=== PATIENT | female | born 1970 | race Caucasian/White ===

== ENCOUNTER 2020-07-05 19:17 | Emergency (ER) | payer MEDICARE ==
[2020-07-05] MEDS ORDERED: BABY ASPIRIN 81 MG CHEW PO ONE (19:19)
--- NOTE | 2020-07-05 19:19 | ERPHSYRPT ---
- History of Present Illness Time Seen by Provider: 07/05/20 19:19 Historian: patient Exam Limitations: no limitations Physician History: This is a 50-year-old white female who has a significant cardiac history. She does have a pacemaker defibrillator that was placed over a year ago in [facility][1] by Dr. Cochran. In addition, she was underwent a open heart procedure which she says was for an enlarged left heart. She states that she has not had any coronary artery bypass grafts or stents placed. Her cardiothoracic surgeon was with Dr. Castaneda at [facility][1]. Again this was done over a year ago. She has not seen either of her heart doctors since she moved to this area. Patient describes sudden onset approximately 1 and half hours ago of substernal chest pain that radiates to her left shoulder and upper arm. She is not short of breath she has no abdominal pain she has no nausea vomiting or diarrhea. She has no cough. She did not take any aspirin or nitroglycerin. Patient is diabetic and has a history of hypertension and TIAs. Timing/Duration: today, hour(s) (1.5) Activities at Onset: rest Quality: pressure, other (She states she is feels like someone is pulling it out) Location: substernal Chest Pain Radiation: arm Severity of Pain-Max: moderate Severity of Pain-Current: moderate Modifying Factors: Improves With: nothing Associated Symptoms: No nausea, No vomiting, No shortness of breath, No diaphoresis, No fever, No headache Prior Chest Pain/Cardiac Workup: cardiac cath, echocardiography Nitro Today/Relief: no nitro taken today Aspirin Treatment Today: no aspirin today Allergies/Adverse Reactions: Penicillins Allergy (Verified 07/05/20 19:19) Home Medications: Buspirone HCl [Buspar] 1 tab PO TID 07/05/20 [History] Escitalopram Oxalate [Lexapro] 1 tab PO DAILY 07/05/20 [History] Fluticasone Propion/Salmeterol [Wixela 500-50 Inhub] 1 puff BID 07/05/20 [History] Glipizide [Glipizide ER] 1 tab PO DAILY 07/05/20 [History] Metoprolol Tartrate 25 mg [Lopressor 25MG Tab] 1 tab PO BID 07/05/20 [History] Topiramate 1 tab PO DAILY 07/05/20 [History] Verapamil HCl [Verapamil ER] 1 tab PO DAILY 07/05/20 [History] Travel Risk - International Travel Have you traveled outside of the country in past 3 weeks: No - Coronavirus Screening Are you exhibiting any of the following symptoms?: No Close contact with a COVID-19 positive Pt in past 14-21 Days: No - Review of Systems Constitutional: No Symptoms Eyes: No Symptoms Ears, Nose, & Throat: No Symptoms Respiratory: No Symptoms Cardiac: Chest Pain Abdominal/Gastrointestinal: No Symptoms Genitourinary Symptoms: No Symptoms Musculoskeletal: No Symptoms Skin: No Symptoms Neurological: No Symptoms Psychological: No Symptoms Endocrine: No Symptoms Hematologic/Lymphatic: No Symptoms Immunological/Allergic: No Symptoms All Other Systems: Reviewed and Negative - Past Medical History Pertinent Past Medical History: Yes Neurological History: No Pertinent History ENT History: No Pertinent History Cardiac History: Arrhythmia, Hypertension, Other (Thickened heart chamber) Respiratory History: No Pertinent History Endocrine Medical History: Diabetes Type II Musculoskeletal History: No Pertinent History GI Medical History: No Pertinent History History: No Pertinent History Psycho-Social History: No Pertinent History Female Reproductive Disorders: No Pertinent History - Past Surgical History Past Surgical History: Yes Cardiac: Pacemaker, Other (Cardiac surgery of unknown type) Respiratory: No Pertinent History Gastrointestinal: No Pertinent History Genitourinary: No Pertinent History Musculoskeletal: No Pertinent History Female Surgical History: No Pertinent History - Nursing Vital Signs Nursing Vital Signs: Initial Vital Signs Pulse Rate 60 07/05/20 19:18 Respiratory Rate 16 07/05/20 19:18 Blood Pressure 136/84 07/05/20 19:18 O2 Sat by Pulse Oximetry 97 07/05/20 19:18 Pain Scale Pain Intensity 3 - Physical Exam General Appearance: no apparent distress, alert, anxiety Eye Exam: PERRL/EOMI, eyes nml inspection Ears, Nose, Throat Exam: normal ENT inspection, moist mucous membranes Neck Exam: normal inspection, non-tender, supple, full range of motion Respiratory Exam: normal breath sounds, chest tenderness, lungs clear, airway intact, No respiratory distress Cardiovascular Exam: regular rate/rhythm, normal heart sounds, normal peripheral pulses Gastrointestinal/Abdomen Exam: soft, normal bowel sounds, No tenderness Pelvic Exam: not done Rectal Exam: not done Back Exam: normal inspection, normal range of motion, No CVA tenderness, No vertebral tenderness Extremity Exam: normal inspection, normal range of motion, pelvis stable Neurologic Exam: alert, oriented x 3, cooperative, trauma program manager II-XII nml as tested, normal mood/affect, nml cerebellar function, nml station & gait, sensation nml Skin Exam: normal color, warm, dry Lymphatic Exam: No adenopathy SpO2 Interpretation: normal O2 Delivery: Room Air - Course Nursing assessment & vital signs reviewed: Yes EKG Interpreted by Me: RATE (63), NORMAL AXIS, NORMAL QRS, NORMAL ST-T, Other (No acute ischemic changes. There is a borderline prolonged NE interval and left ventricular hypertrophy present. There is atrial paced complexes present.) Ordered Tests: Active Orders 24 hr Category Date Time Status Cloth Desizing Range Tender STAT Care 07/05/20 19:26 Active EKG-ER Only STAT Care 07/05/20 19:19 Active IV Insertion STAT Care 07/05/20 19:19 Active Pulse Oximetry (ED) STAT Care 07/05/20 19:19 Active CHEST 1 VIEW (PORTABLE) Stat Exams 07/05/20 19:19 Completed CHEST WITH CONTRAST [CT] Stat Exams 07/05/20 21:59 Taken BMP Stat Lab 07/05/20 21:43 Completed CBC W DIFF Stat Lab 07/05/20 19:30 Completed CMP Stat Lab 07/05/20 19:30 Completed D-DIMER QUANTITATIVE Stat Lab 07/05/20 19:30 Completed NT PRO BNP Stat Lab 07/05/20 19:30 Completed PROTIME WITH INR Stat Lab 07/05/20 19:30 Completed TROPONIN Q3H Lab 07/05/20 19:30 Completed TROPONIN Q3H Lab 07/05/20 21:43 Completed TROPONIN Q3H Lab 07/06/20 01:30 Ordered TROPONIN Q3H Lab 07/06/20 04:30 Ordered TROPONIN Q3H Lab 07/06/20 07:30 Ordered Medication Summary Generic Name Dose Route Start Last Admin Trade Name Freq PRN Reason Stop Dose Admin Sodium Chloride 1,000 mls @ 250 mls/hr 07/05/20 20:30 07/05/20 20:31 Sodium Chloride 0.9% 1000 Ml IV 08/04/20 20:29 250 mls/hr .Q4H АННА Administration Discontinued Medications Generic Name Dose Route Start Last Admin Trade Name Freq PRN Reason Stop Dose Admin Aspirin 324 mg 07/05/20 19:19 07/05/20 19:24 Baby Aspirin 81 Mg Chew PO 07/05/20 19:20 324 mg STAT ONE Administration Sodium Chloride 500 mls @ 500 mls/hr 07/05/20 20:02 07/05/20 21:07 Sodium Chloride 0.9% 500 Ml IV 07/05/20 21:01 Infused .Q1H ONE Infusion Sodium Chloride Confirm 07/05/20 20:04 Sodium Chloride 0.9% 500 Ml Administered 07/05/20 20:05 Dose 500 mls @ ud IV .STK-MED ONE Morphine Sulfate 2 mg 07/05/20 20:02 07/05/20 20:07 Morphine Sulfate 2 Mg Inj IV 07/05/20 20:03 2 mg STAT ONE Administration Morphine Sulfate Confirm 07/05/20 20:04 Morphine Sulfate 2 Mg Inj Administered 07/05/20 20:05 Dose 2 mg .ROUTE .STK-MED ONE Ondansetron HCl 4 mg 07/05/20 20:02 07/05/20 20:06 Zofran 4 Mg/2 Ml Vial IV 07/05/20 20:03 4 mg STAT ONE Administration Ondansetron HCl Confirm 07/05/20 20:04 Zofran 4 Mg/2 Ml Vial Administered 07/05/20 20:05 Dose 4 mg .ROUTE .STK-MED ONE Lab/Rad Data: Laboratory Result Diagrams 07/05/20 19:30 07/05/20 21:43 Laboratory Results 07/05/20 07/05/20 07/05/20 Range/Units 21:43 21:43 19:30 WBC (4.0-10.5) K/mm3 RBC (4.1-5.4) M/mm3 Hgb (12.0-16.0) gm/dl Hct (35-47) % MCV (78-100) fl MCH (26-32) pg MCHC (32-36) g/dl RDW (11.5-14.0) % Plt Count (150-450) K/mm3 MPV (7.5-11.0) fl Gran % (36.0-66.0) % Eos # (Auto) (0-0.5) Absolute Lymphs (auto) (1.0-4.6) Absolute Monos (auto) (0.0-1.3) Lymphocytes % (24.0-44.0) % Monocytes % (0.0-12.0) % Eosinophils % (0.00-5.0) % Basophils % (0.0-0.4) % Absolute Granulocytes (1.4-6.9) Basophils # (0-0.4) PT (9.95-12.35) SECONDS INR (0.8-3.0) D-Dimer (215-500) ng/mL Sodium 138 (137-145) mmol/L Potassium 4.1 (3.5-5.1) mmol/L Chloride 110 H (98-107) mmol/L Carbon Dioxide 24 (22-30) mmol/L Anion Gap 7.7 (5-15) MEQ/L BUN 24 H (7-17) mg/dL Creatinine 1.20 H (0.52-1.04) mg/dL Estimated GFR 50.5 ML/MIN Glucose 82 (74-106) mg/dL Calcium 8.3 L (8.4-10.2) mg/dL Total Bilirubin (0.2-1.3) mg/dL AST (14-36) U/L ALT (0-35) U/L Alkaline Phosphatase (38-126) U/L Troponin I < 0.012 < 0.012 (0.000-0.034) ng/mL NT-Pro-B Natriuret Pep (0-900) pg/mL Serum Total Protein (6.3-8.2) g/dL Albumin (3.5-5.0) g/dL 07/05/20 07/05/20 07/05/20 Range/Units 19:30 19:30 19:30 WBC 6.8 (4.0-10.5) K/mm3 RBC 3.74 L (4.1-5.4) M/mm3 Hgb 11.0 L (12.0-16.0) gm/dl Hct 34.8 L (35-47) % MCV 93.0 (78-100) fl MCH 29.4 (26-32) pg MCHC 31.6 L (32-36) g/dl RDW 13.2 (11.5-14.0) % Plt Count 298 (150-450) K/mm3 MPV 9.6 (7.5-11.0) fl Gran % 48.3 (36.0-66.0) % Eos # (Auto) 0.18 (0-0.5) Absolute Lymphs (auto) 2.69 (1.0-4.6) Absolute Monos (auto) 0.62 (0.0-1.3) Lymphocytes % 39.4 (24.0-44.0) % Monocytes % 9.1 (0.0-12.0) % Eosinophils % 2.6 (0.00-5.0) % Basophils % 0.6 (0.0-0.4) % Absolute Granulocytes 3.29 (1.4-6.9) Basophils # 0.04 (0-0.4) PT 11.6 (9.95-12.35) SECONDS INR 1.03 (0.8-3.0) D-Dimer 765 H* (215-500) ng/mL Sodium 138 (137-145) mmol/L Potassium 4.0 (3.5-5.1) mmol/L Chloride 108 H (98-107) mmol/L Carbon Dioxide 23 (22-30) mmol/L Anion Gap 10.4 (5-15) MEQ/L BUN 23 H (7-17) mg/dL Creatinine 1.29 H (0.52-1.04) mg/dL Estimated GFR 46.5 ML/MIN Glucose 94 (74-106) mg/dL Calcium 9.1 (8.4-10.2) mg/dL Total Bilirubin 0.30 (0.2-1.3) mg/dL AST 22 (14-36) U/L ALT 19 (0-35) U/L Alkaline Phosphatase 56 (38-126) U/L Troponin I (0.000-0.034) ng/mL NT-Pro-B Natriuret Pep 281 (0-900) pg/mL Serum Total Protein 6.9 (6.3-8.2) g/dL Albumin 4.0 (3.5-5.0) g/dL - Progress Progress: re-examined Air Movement: good Progress Note: 07/05/20 20:04 Chest x-ray shows no acute cardiopulmonary process 07/05/20 23:17 CT of the chest with contrast reveals no evidence of pulmonary embolus. There is no evidence of acute pulmonary pathology present. 07/05/20 23:17 Medical decision making: This patient had sudden onset of substernal chest pain with radiation to the left shoulder and upper arm. She has been given aspirin, nitroglycerin and morphine. Her vital signs are stable. Her chest x-ray is free from any acute cardiopulmonary process. Her CT scan of the chest with contrast showed no pulmonary embolus and no evidence of acute pulmonary pathology. Patient was reexamined. She continues to have chest pain at the level of approximately 3-4 out of 10. We will contact the patient's muck boss at [facility][1] for further recommendations. 07/06/20 00:[address] Lei ([phone]) who is the muck boss covering for Dr. Cochran at [facility][1]. I reviewed the patient history, condition, EKG findings, chest x-ray findings, CAT scan of the chest with contr ast findings and laboratory results. He reviewed the patient's chart. She has a history of hypertrophic cardiomyopathy. She underwent an open heart surgery to have a myotomy performed. He stated there is no evidence that she has any coronary artery disease or evidence of ischemia. He recommends intravenous fluids followed by discharge to home and follow-up with Dr. Cochran by phone on Wednesday to make arrangements for follow-up appointment. We have given the patient approximately 1600 mL of intravenous fluid. Patient has two normal troponins, normal chest x-ray, no acute findings on a CTA of chest with contrast, a nonacute EKG and a cardiology consultation. Patient be discharged to home. Blood Culture(s) Obtained: No Antibiotics given: No Counseled pt/family regarding: lab results, diagnosis, need for follow-up, rad results - Departure Departure Disposition: Home Clinical Impression: Chest pain Condition: Stable Critical Care Time: No Referrals: DOCTOR,NO FAMILY [Primary Care Provider] - Additional Instructions: Take your medication as prescribed. Call your muck boss Wednesday, July 08, 2020, Dr. Cochran, to make arrangements for a follow-up appointment. Return to the emergency department if your symptoms worsen. Use the list we provided you to make an appointment to see a local primary care provider.
[2020-07-05 19:35] LABS: Absolute Neutrophil Ct (ANC) 3.29 (1.4-6.9); BASOPHIL % 0.6 % (0.0-0.4); Basophil (Absolute #) 0.04 (0-0.4); Eosinophil % 2.6 % (0.00-5.0); Eosinophil (Absolute #) 0.18 (0-0.5); Hematocrit 34.8 % (35-47); Lymphocyte (Absolute #) 2.69 (1.0-4.6); Lymphocytes % 39.4 % (24.0-44.0); Mean Corpuscular Hemoglobin 29.4 pg (26-32); Mean Corpuscular Hgb Concent. 31.6 g/dl (32-36); Mean Platelet Volume 9.6 fl (7.5-11.0); Monocyte (Absolute #) 0.62 (0.0-1.3); Monocytes % 9.1 % (0.0-12.0); Neutrophil % 48.3 % (36.0-66.0); Platelet Count 298 K/mm3 (150-450); Red Blood Count 3.74 M/mm3 (4.1-5.4); Red Cell Distribution Width 13.2 % (11.5-14.0); White Blood Count 6.8 K/mm3 (4.0-10.5)
[2020-07-05 19:44] LABS: INR 1.03 (0.8-3.0); PROTIME 11.6 SECONDS (9.95-12.35)
[2020-07-05 19:57] LABS: ANION GAP 10.4 MEQ/L (5-15); BILIRUBIN,TOTAL 0.3 mg/dL (0.2-1.3); Calcium 9.1 mg/dL (8.4-10.2); Creatinine 1 1.29 mg/dL (0.52-1.04); EST GLOMERULAR FILTRATION RATE 46.5 ML/MIN; Total Protein 6.9 g/dL (6.3-8.2)
[2020-07-05] MEDS ORDERED: MORPHINE SULFATE 2 MG INJ IV ONE (20:02)
[2020-07-05] MEDS ORDERED: Sodium Chloride 0.9% 500 ML 500 ML IV ONE ×2 (20:02→20:04)
[2020-07-05] MEDS ORDERED: Zofran 4 MG/2 ML VIAL IV ONE (20:02)
[2020-07-05] MEDS ORDERED: MORPHINE SULFATE 2 MG INJ ONE (20:04)
[2020-07-05] MEDS ORDERED: Zofran 4 MG/2 ML VIAL ONE (20:04)
[2020-07-05] MEDS ORDERED: Sodium Chloride 0.9% 1000 ML 1,000 ML ONE (20:30)
[2020-07-05] MEDS ORDERED: Sodium Chloride 0.9% 1000 ML 1,000 ML IV SCH (20:30)
--- NOTE | 2020-07-05 21:40 | XRAY ---
Indication: Chest pain. Comparison: None Portable chest is clear. Heart is not enlarged and demonstrates left-sided AICD. Bony thorax intact with sternotomy wires. Impression: Nonacute chest with chronic features.
[2020-07-05 21:58] LABS: ANION GAP 7.7 MEQ/L (5-15); Calcium 8.3 mg/dL (8.4-10.2); Creatinine 1 1.2 mg/dL (0.52-1.04); EST GLOMERULAR FILTRATION RATE 50.5 ML/MIN; Potassium 4.1 mmol/L (3.5-5.1)
[2020-07-06 00:44] VITALS: BP 144/66; PULSE 60; O2SAT 98
--- NOTE | 2020-07-06 06:05 | XRAY ---
Indication: Chest pain and short of breath. Elevated d-dimer. Multiple contiguous axial images obtained through the chest using 80 cc Isovue 370 contrast and PE protocol. Comparison: None There is good opacification of the pulmonary arteries to include the lobar and segmental branches. No pulmonary embolus. Heart is borderline enlarged with left-sided AICD. Aorta is normal in course and caliber. Small hiatal hernia. Lungs demonstrates minimal bilateral dependent atelectasis. No suspicious pulmonary mass, infiltrate, or effusion. Bony thorax intact with mild degenerative changes throughout the spine and sternotomy wires. Limited upper abdomen demonstrates cholecystectomy clips. Impression: Negative pulmonary embolus. No acute cardiopulmonary abnormalities. Incidental small hiatal hernia. Comment: Preliminary interpretation was made by [facility]. No critical discrepancy.
== END 2020-07-06 00:45 | disposition home or self-care (01) ==
LOC: ED 19:17
DX: R07.9 Chest pain, unspecified (principal)
CPT/HCPCS: 36000; 36415; 71045; 71260; 80048; 80053; 83880; 84484; 85025; 85379; 85610; 93005; 93041; 94760; 96360; 96361; 96374; 96375; 99285; J2270; J2405; A9270-GY

== ENCOUNTER 2020-07-20 00:13 | Emergency (ER) | payer MEDICARE ==
--- NOTE | 2020-07-20 00:24 | ERPHSYRPT ---
- History of Present Illness Time Seen by Provider: 07/20/20 00:24 Source: patient Exam Limitations: no limitations Physician History: This is a 50-year-old white female known to me and presents with 2-day history of malaise and 1 day history of fever. Patient does have a significant cardiac history. She had a pacemaker/defibrillator placed by Dr. Cochran in [facility] and underwent a left ventricle myotomy by Dr. Castaneda also at [facility] less than a year ago. It was verified 2 weeks ago, that the patient has no evidence of any coronary artery disease or cardiac ischemia based on recent work-up. Patient is diabetic, has hypertension and a history of TIAs. Patient had fever yesterday but none today. She is had no nausea no vomiting no diarrhea. She has no myalgias or arthralgias. Patient would like to be tested for COVID-19 virus. Timing/Duration: yesterday Severity: mild Associated Symptoms: fever, malaise Allergies/Adverse Reactions: Penicillins Allergy (Verified 07/20/20 00:27) Home Medications: Buspirone HCl [Buspar] 1 tab PO TID 07/05/20 [History] Escitalopram Oxalate [Lexapro] 1 tab PO DAILY 07/05/20 [History] Fluticasone Propion/Salmeterol [[place]ela 500-50 Inhub] 1 puff BID 07/05/20 [History] Glipizide [Glipizide ER] 1 tab PO DAILY 07/05/20 [History] Metoprolol Tartrate 25 mg [Lopressor 25MG Tab] 1 tab PO BID 07/05/20 [History] Topiramate 1 tab PO DAILY 07/05/20 [History] Verapamil HCl [Verapamil ER] 1 tab PO DAILY 07/05/20 [History] Hx Tetanus, Diphtheria Vaccination/Date Given: Yes Hx Influenza Vaccination/Date Given: Yes Travel Risk - International Travel Have you traveled outside of the country in past 3 weeks: No - Coronavirus Screening Are you exhibiting any of the following symptoms?: Yes Symptoms: Fever Close contact with a COVID-19 positive Pt in past 14-21 Days: No - Review of Systems Constitutional: Fever, Malaise Eyes: No Symptoms Ears, Nose, & Throat: No Symptoms Respiratory: No Symptoms Cardiac: No Symptoms Abdominal/Gastrointestinal: No Symptoms Genitourinary Symptoms: No Symptoms Musculoskeletal: No Symptoms Skin: No Symptoms Neurological: No Symptoms Psychological: No Symptoms Endocrine: No Symptoms Hematologic/Lymphatic: No Symptoms Immunological/Allergic: No Symptoms All Other Systems: Reviewed and Negative - Past Medical History Pertinent Past Medical History: Yes Neurological History: No Pertinent History ENT History: No Pertinent History Cardiac History: Arrhythmia, Hypertension, Other (Thickened heart chamber) Respiratory History: No Pertinent History Endocrine Medical History: Diabetes Type II Musculoskeletal History: No Pertinent History GI Medical History: No Pertinent History History: No Pertinent History Psycho-Social History: No Pertinent History Female Reproductive Disorders: No Pertinent History - Past Surgical History Past Surgical History: Yes Neuro Surgical History: No Pertinent History Cardiac: Pacemaker, Other (Cardiac surgery of unknown type) Respiratory: No Pertinent History Gastrointestinal: No Pertinent History Genitourinary: No Pertinent History Musculoskeletal: No Pertinent History Female Surgical History: No Pertinent History - Social History Smoking Status: Former smoker Exposure to second hand smoke: No Drug Use: none Patient Lives Alone: No - Nursing Vital Signs Nursing Vital Signs: Initial Vital Signs Temperature 98.4 F 07/20/20 00:28 Pulse Rate 68 07/20/20 00:28 Respiratory Rate 18 07/20/20 00:28 Blood Pressure 188/112 07/20/20 00:28 O2 Sat by Pulse Oximetry 99 07/20/20 00:28 Pain Scale Pain Intensity 0 - Physical Exam General Appearance: no apparent distress, alert, anxiety Eye Exam: PERRL/EOMI, eyes nml inspection Ears, Nose, Throat Exam: normal ENT inspection, moist mucous membranes Neck Exam: normal inspection, non-tender, supple, full range of motion Respiratory Exam: normal breath sounds, lungs clear, airway intact, No chest tenderness, No respiratory distress Cardiovascular Exam: regular rate/rhythm, normal heart sounds, normal peripheral pulses Gastrointestinal/Abdomen Exam: soft, normal bowel sounds, No tenderness Pelvic Exam: not done Rectal Exam: not done Back Exam: normal inspection, normal range of motion, vertebral tenderness, No CVA tenderness Extremity Exam: normal inspection, normal range of motion, pelvis stable Neurologic Exam: alert, oriented x 3, cooperative, spindraw operator II-XII nml as tested, normal mood/affect, nml cerebellar function, nml station & gait, sensation nml Skin Exam: normal color, warm, dry Lymphatic Exam: No adenopathy SpO2 Interpretation: normal O2 Delivery: Room Air - Course Nursing assessment & vital signs reviewed: Yes Ordered Tests: Active Orders 24 hr Category Date Time Status IV Insertion STAT Care 07/20/20 00:46 Active BLOOD CULTURE Stat Lab 07/20/20 01:15 Received BMP Stat Lab 07/20/20 01:15 Completed CBC W DIFF Stat Lab 07/20/20 01:15 Completed INFLUENZA A+B LÓPEZ Stat Lab 07/20/20 01:15 Completed Lactic Acid Stat Lab 07/20/20 01:10 Completed [place] Screen Stat Lab 07/20/20 01:15 Completed UA W/RFX UR CULTURE Stat Lab 07/20/20 01:13 Completed Medication Summary Discontinued Medications Generic Name Dose Route Start Last Admin Trade Name Freq PRN Reason Stop Dose Admin Sodium Chloride 500 mls @ 500 mls/hr 07/20/20 00:47 Sodium Chloride 0.9% 500 Ml IV 07/20/20 01:46 .Q1H ONE Sodium Chloride Confirm 07/20/20 01:02 Sodium Chloride 0.9% 500 Ml Administered 07/20/20 01:03 Dose 500 mls @ ud IV .STK-MED ONE Lab/Rad Data: Laboratory Result Diagrams 07/20/20 01:15 07/20/20 01:15 Laboratory Results 07/20/20 07/20/20 07/20/20 Range/Units 01:15 01:15 01:15 WBC (4.0-10.5) K/mm3 RBC (4.1-5.4) M/mm3 Hgb (12.0-16.0) gm/dl Hct (35-47) % MCV (78-100) fl MCH (26-32) pg MCHC (32-36) g/dl RDW (11.5-14.0) % Plt Count (150-450) K/mm3 MPV (7.5-11.0) fl Gran % (36.0-66.0) % Eos # (Auto) (0-0.5) Absolute Lymphs (auto) (1.0-4.6) Absolute Monos (auto) (0.0-1.3) Lymphocytes % (24.0-44.0) % Monocytes % (0.0-12.0) % Eosinophils % (0.00-5.0) % Basophils % (0.0-0.4) % Absolute Granulocytes (1.4-6.9) Basophils # (0-0.4) Sodium 138 (137-145) mmol/L Potassium 3.8 (3.5-5.1) mmol/L Chloride 107 (98-107) mmol/L Carbon Dioxide 24 (22-30) mmol/L Anion Gap 11.0 (5-15) MEQ/L BUN 22 H (7-17) mg/dL Creatinine 1.07 H (0.52-1.04) mg/dL Estimated GFR 57.7 ML/MIN Glucose 98 (74-106) mg/dL Lactic Acid (0.4-2.0) Calcium 9.2 (8.4-10.2) mg/dL Urine Color (YELLOW) Urine Appearance (CLEAR) Urine pH (5-6) Ur Specific [place] (1.005-1.025) Urine Protein (Negative) Urine Ketones (NEGATIVE) Urine Blood (0-5) Manny/ul Urine Nitrite (NEGATIVE) Urine Bilirubin (NEGATIVE) Urine Urobilinogen (0-1) mg/dL Ur Leukocyte Esterase (NEGATIVE) Urine WBC (Auto) (0-5) /HPF Urine RBC (Auto) (0-2) /HPF U Epithel Cells (Auto) (FEW) /HPF Urine Bacteria (Auto) (NEGATIVE) /HPF Urine Mucus (Auto) (NEGATIVE) /HPF Urine Culture Reflexed (NO) Urine Glucose (NEGATIVE) mg/dL Monoscreen NEGATIVE (Negative) Influenza Type A Ag (NEGATIVE) Influenza Type B Ag (NEGATIVE) Group A Strep Antibody NOT DETECTED (NEGATIVE) 07/20/20 07/20/20 07/20/20 Range/Units 01:15 01:15 01:13 WBC 7.2 (4.0-10.5) K/mm3 RBC 4.17 (4.1-5.4) M/mm3 Hgb 12.1 (12.0-16.0) gm/dl Hct 37.8 (35-47) % MCV 90.6 (78-100) fl MCH 29.0 (26-32) pg MCHC 32.0 (32-36) g/dl RDW 13.3 (11.5-14.0) % Plt Count 317 (150-450) K/mm3 MPV 9.8 (7.5-11.0) fl Gran % 55.8 (36.0-66.0) % Eos # (Auto) 0.20 (0-0.5) Absolute Lymphs (auto) 2.39 (1.0-4.6) Absolute Monos (auto) 0.52 (0.0-1.3) Lymphocytes % 33.4 (24.0-44.0) % Monocytes % 7.3 (0.0-12.0) % Eosinophils % 2.8 (0.00-5.0) % Basophils % 0.7 (0.0-0.4) % Absolute Granulocytes 4.00 (1.4-6.9) Basophils # 0.05 (0-0.4) Sodium (137-145) mmol/L Potassium (3.5-5.1) mmol/L Chloride (98-107) mmol/L Carbon Dioxide (22-30) mmol/L Anion Gap (5-15) MEQ/L BUN (7-17) mg/dL Creatinine (0.52-1.04) mg/dL Estimated GFR ML/MIN Glucose (74-106) mg/dL Lactic Acid (0.4-2.0) Calcium (8.4-10.2) mg/dL Urine Color STRAW (YELLOW) Urine Appearance CLEAR (CLEAR) Urine pH 7.0 (5-6) Ur Specific [place] 1.012 (1.005-1.025) Urine Protein NEGATIVE (Negative) Urine Ketones NEGATIVE (NEGATIVE) Urine Blood NEGATIVE (0-5) Manny/ul Urine Nitrite NEGATIVE (NEGATIVE) Urine Bilirubin NEGATIVE (NEGATIVE) Urine Urobilinogen NEGATIVE (0-1) mg/dL Ur Leukocyte Esterase NEGATIVE (NEGATIVE) Urine WBC (Auto) 0-2 (0-5) /HPF Urine RBC (Auto) NONE (0-2) /HPF U Epithel Cells (Auto) RARE (FEW) /HPF Urine Bacteria (Auto) NONE SEEN (NEGATIVE) /HPF Urine Mucus (Auto) SLIGHT (NEGATIVE) /HPF Urine Culture Reflexed NO (NO) Urine Glucose NEGATIVE (NEGATIVE) mg/dL Monoscreen (Negative) Influenza Type A Ag NEGATIVE (NEGATIVE) Influenza Type B Ag NEGATIVE (NEGATIVE) Group A Strep Antibody (NEGATIVE) 07/20/20 Range/Units 01:10 WBC (4.0-10.5) K/mm3 RBC (4.1-5.4) M/mm3 Hgb (12.0-16.0) gm/dl Hct (35-47) % MCV (78-100) fl MCH (26-32) pg MCHC (32-36) g/dl RDW (11.5-14.0) % Plt Count (150-450) K/mm3 MPV (7.5-11.0) fl Gran % (36.0-66.0) % Eos # (Auto) (0-0.5) Absolute Lymphs (auto) (1.0-4.6) Absolute Monos (auto) (0.0-1.3) Lymphocytes % (24.0-44.0) % Monocytes % (0.0-12.0) % Eosinophils % (0.00-5.0) % Basophils % (0.0-0.4) % Absolute Granulocytes (1.4-6.9) Basophils # (0-0.4) Sodium (137-145) mmol/L Potassium (3.5-5.1) mmol/L Chloride (98-107) mmol/L Carbon Dioxide (22-30) mmol/L Anion Gap (5-15) MEQ/L BUN (7-17) mg/dL Creatinine (0.52-1.04) mg/dL Estimated GFR ML/MIN Glucose (74-106) mg/dL Lactic Acid 0.6 (0.4-2.0) Calcium (8.4-10.2) mg/dL Urine Color (YELLOW) Urine Appearance (CLEAR) Urine pH (5-6) Ur Specific [place] (1.005-1.025) Urine Protein (Negative) Urine Ketones (NEGATIVE) Urine Blood (0-5) Manny/ul Urine Nitrite (NEGATIVE) Urine Bilirubin (NEGATIVE) Urine Urobilinogen (0-1) mg/dL Ur Leukocyte Esterase (NEGATIVE) Urine WBC (Auto) (0-5) /HPF Urine RBC (Auto) (0-2) /HPF U Epithel Cells (Auto) (FEW) /HPF Urine Bacteria (Auto) (NEGATIVE) /HPF Urine Mucus (Auto) (NEGATIVE) /HPF Urine Culture Reflexed (NO) Urine Glucose (NEGATIVE) mg/dL Monoscreen (Negative) Influenza Type A Ag (NEGATIVE) Influenza Type B Ag (NEGATIVE) Group A Strep Antibody (NEGATIVE) - Progress Progress: re-examined Counseled pt/family regarding: lab results, diagnosis, need for follow-up - Departure Departure Disposition: Home Clinical Impression: Fever, Malaise Condition: Stable Critical Care Time: No Referrals: DAMION COLLADO MD [Primary Care Provider] - Additional Instructions: Drink plenty of fluids. Use Tylenol for fever control. Follow-up with your primary care physician for the report on your COVID-19 test results. Quarantine yourself until you receive the test results.
[2020-07-20] MEDS ORDERED: Sodium Chloride 0.9% 500 ML 500 ML IV ONE ×2 (00:47→01:02)
[2020-07-20 01:20] LABS: BASOPHIL % 0.7 % (0.0-0.4); Basophil (Absolute #) 0.05 (0-0.4); Eosinophil % 2.8 % (0.00-5.0); Hematocrit 37.8 % (35-47); Hemoglobin 12.1 gm/dl (12.0-16.0); Lymphocyte (Absolute #) 2.39 (1.0-4.6); Lymphocytes % 33.4 % (24.0-44.0); Mean Cell Volume 90.6 fl (78-100); Mean Platelet Volume 9.8 fl (7.5-11.0); Monocyte (Absolute #) 0.52 (0.0-1.3); Monocytes % 7.3 % (0.0-12.0); Neutrophil % 55.8 % (36.0-66.0); Platelet Count 317 K/mm3 (150-450); Red Blood Count 4.17 M/mm3 (4.1-5.4); Red Cell Distribution Width 13.3 % (11.5-14.0); White Blood Count 7.2 K/mm3 (4.0-10.5)
[2020-07-20 01:36] LABS: Calcium 9.2 mg/dL (8.4-10.2); Creatinine 1 1.07 mg/dL (0.52-1.04); EST GLOMERULAR FILTRATION RATE 57.7 ML/MIN; Potassium 3.8 mmol/L (3.5-5.1)
[2020-07-20 01:38] VITALS: PULSE 60
[2020-07-20 01:38] LABS: Appearance CLEAR (CLEAR); Bacteria NONE SEEN /HPF (NEGATIVE); Bilirubin NEGATIVE (NEGATIVE); Blood NEGATIVE Ery/ul (0-5); Epithelial Cells RARE /HPF (FEW); Glucose NEGATIVE (NEGATIVE); Ketones NEGATIVE (NEGATIVE); Leukocyte Esterase NEGATIVE (NEGATIVE); Mucus SLIGHT /HPF (NEGATIVE); Nitrite NEGATIVE (NEGATIVE); Protein,Urine Dip NEGATIVE (Negative); Specific Gravity 1.012 (1.005-1.025); Urobilinogen NEGATIVE mg/dL (0-1); WBC 0-2 /HPF (0-5)
[2020-07-20 01:53] LABS: INFLUENZA A NEGATIVE (NEGATIVE); INFLUENZA B NEGATIVE (NEGATIVE)
[2020-07-20 02:17] VITALS: BP 161/105; O2SAT 98
== END 2020-07-20 02:20 | disposition home or self-care (01) ==
LOC: ED 00:13
DX: R50.9 Fever, unspecified (principal); R53.81 Other malaise
CPT/HCPCS: 36415; 80048; 81001; 83605; 85025; 86308; 87040; 87400; 87651; 96360; 99283; U0003